=== PATIENT | male | born 1955 | race Caucasian/White ===

== ENCOUNTER 2024-02-19 06:07 | Day surgery (SDC) | payer OTHER, SELFPAY ==
[2024-02-09 13:19] LABS: Hematocrit 41.4 % (39.0-52.0); Hemoglobin 14.6 g/dL (13.0-18.0); Mean Corp Hgb Conc. 35.3 g/dL (33.0-37.0); Mean Corpuscular Hgb 30.4 pg (27.0-31.0); Mean Corpuscular Volume 86.3 fL (80.0-94.0); Mean Platelet Volume 10.3 fL (7.4-10.4); Platelet Count 248 10^3/uL (130-400); Red Cell Dist. Width 14.3 % (11.5-14.5); White Blood Cell Count 8.7 10^3/uL (4.8-10.8)
[2024-02-09 13:47] VITALS: BMI 36.9
[2024-02-09 13:59] LABS: ALT (SGPT) 38 U/L (0-50); AST (SGOT) 35 U/L (17-59); Albumin 4.7 g/dl (3.5-5.0); Alkaline Phosphatase 206 U/L (38-126); Blood Urea Nitrogen 21 mg/dl (9-20); Calcium 10.1 mg/dl (8.4-10.2); Carbon Dioxide 20 mmol/L (22-30); Chloride 98 mmol/L (98-107); Estimated Creatinine Clearance 62 ml/min; Glucose 113 mg/dl (70-99); Potassium 4.8 mmol/L (3.5-5.1); Sodium 137 mmol/L (135-145); Total Bilirubin 0.9 mg/dl (0.2-1.3); Total Protein 7.6 g/dl (6.3-8.2); eGFR 55.09
[2024-02-10 09:14] LABS: Glycohemoglobin (HgbA1c) 5.9 % (4.0-5.6)
[2024-02-13 14:04] VITALS: BMI 36.9
--- NOTE | 2024-02-18 10:28 | VNURNOTE ---
Patient is scheduled for an elective R TKR on 02/19/24. PSR/He will stay overnight. Spoke with patient prior to surgery via telephone.
Patient reports that he lives with his in a one story home.
There are 3 PRICE. He currently functions independently.
DME: He has a rolling walker and cane
PCP is Dr Jin
Discussed orthopedic program and post surgical plans. Reviewed anticipated length of stay and that goal is for him to return home at discharge and go to outpatient PT at [facility]. He will have support from his when he goes home. Call placed
to Ortho, left message confirming plan.
Plan: Outpt PT on 02/22
[2024-02-19] VITALS (12 sets, daily range): BP systolic 113–165; BP diastolic 68–99; PULSE 81; O2SAT 95; BMI 36.9
[2024-02-19] MEDS: BACTROBAN NASAL 1 GRAM NASAL (11:09)
[2024-02-19] MEDS: MOBIC 15 MG PO (11:09)
[2024-02-19] MEDS: TYLENOL 650 MG PO (11:11)
[2024-02-19 11:44] LABS: Glucose - Point of Care 121 mg/dl (70-99)
[2024-02-19] MEDS: VANCOCIN 300 MG IV (11:59)
[2024-02-19] MEDS: VANCOCIN 300 ML IV (11:59)
[2024-02-19] MEDS: NORMOSOL-R/PLASMALYTE-A 1000 IV ×2 (11:59→15:55)
--- NOTE | 2024-02-19 12:22 | PTCARENOTE ---
Patient swabbed with mupirocin. Unable to do MRSA swab at this time. Per instrumentation supervisor Enoch patient can have MRSA swab done tomorrow when patient is up to the nursing floor prior to discharge. Patient is an ABRAHAN.
[2024-02-19 14:47] LABS: Glucose - Point of Care 129 mg/dl (70-99)
[2024-02-19] MEDS: ROXICODONE 5 MG PO ×2 (15:55→18:39)
--- NOTE | 2024-02-19 16:02 | W.PN.UPDATE ---
Update Note
Progress Note Update
Patient seen and examined. Doing well s/p R TKR. VSS. Pulm: nonlabored. CV: regular. RLE: Dressing CDI. NVI distally. Calf soft. Able to fully extend. Postop xrays as expected. ASA for DVT prophylaxis. Outpatient PT after discharge.
Discharge home tomorrow if stable.
[2024-02-19] MEDS: ASPIRIN 325 MG PO (17:04)
[2024-02-19] MEDS: ANCEF 5 IV (20:05)
[2024-02-19] MEDS: SENOKOT 17.2 MG PO (20:05)
[2024-02-19] MEDS: COLACE 100 MG PO (20:05)
[2024-02-19] MEDS: BACTROBAN 2% OINTMENT 1 APPLIC NASAL (20:05)
[2024-02-19] MEDS: DILAUDID 0.5 MG IV (20:06)
[2024-02-19] MEDS: SINEQUAN 150 MG PO (20:49)
[2024-02-19] MEDS: PROCARDIA XL (EXTENDED RELEASE) 30 MG PO (20:49)
[2024-02-19] MEDS: LEXAPRO 10 MG PO (20:50)
[2024-02-19] MEDS: ZESTRIL 10 MG PO (20:50)
[2024-02-19] MEDS: PROTONIX 40 MG PO (20:50)
[2024-02-19] MEDS: LIPITOR 40 MG PO (20:50)
[2024-02-19 22:09] LABS: Glucose - Point of Care 218 mg/dl (70-99)
[2024-02-19] MEDS: FARXIGA 10 MG PO (22:12)
[2024-02-19] MEDS: ROXICODONE 10 MG PO (23:03)
[2024-02-20] MEDS: DILAUDID 0.5 MG IV (01:54)
[2024-02-20 03:10] VITALS: BP 107/76
[2024-02-20] MEDS: ANCEF 5 IV (04:57)
--- NOTE | 2024-02-20 07:17 | W.PN.ORTHO ---
Today's Communication / Plan
-
Plan for discharge later today with outpatient PT on Friday
Assessment
.
Distal Motor Intact: Yes
Dressing:
Clean, dry and intact.
Assessment:
Doing well postop
Plan for discharge later today
Plan
.
Surgery / Date: 02/19/2024 Right TKR [place]
DVT Prophylaxis: Aspirin
Activity:
Out of bed.
PT/OT
Discharge Plan: Home w/ Outpatient PT
Subjective
.
.:
Patient resting comfortably. OOB yesterday and doing well this AM
Vital Signs and Labs
.
Vital Signs and Labs:
Lab Results
02/09/24 12:46
02/09/24 12:46
Temp Pulse Resp BP Pulse Ox
97.3 F 101 18 107/76 92
02/20/24 03:10 02/20/24 03:10 02/20/24 03:10 02/20/24 03:10 02/20/24 03:10
Non-invasive Hgb result: 12.9
Physical Exam
-
Pulmonary nonlabored
CV: regular
RLE: Able to fully extend. Calf soft. NVI distally
[2024-02-20 07:20] VITALS: BP 102/54
[2024-02-20] MEDS: ASPIRIN 325 MG PO (07:47)
[2024-02-20] MEDS: ROXICODONE 10 MG PO (07:47)
[2024-02-20] MEDS: COLACE 100 MG PO (07:47)
[2024-02-20] MEDS: SENOKOT 17.2 MG PO (07:47)
[2024-02-20] MEDS: BACTROBAN 2% OINTMENT 1 APPLIC NASAL (07:52)
[2024-02-20 08:03] LABS: Glucose - Point of Care 182 mg/dl (70-99)
[2024-02-20 08:35] VITALS: BP 107/61; BP 89/56; BP 97/59; PULSE 91
--- NOTE | 2024-02-20 11:31 | PTCARENOTE ---
OT report that patient BP dropped during session and patient became dizzy. OT report BP in semi machado position in bed was 97/59 HR 91. Standing 89/56. Sitting back down 107/61 HR 95. Patient reported that dizziness did resolve when sitting. Patient
also states that he has dizziness at home when standing but it normally goes away quickly. Patient did receive oxy 10 mg this Am at 0747 for pain 12/09. Sunshine Rhodes made aware. Repeat at 1050. Bp sitting was 125/67 HR 95. BP standing was 112/67 HR
102. Sunshine made aware.
[2024-02-20 11:48] VITALS: BP 119/70; BP 125/75; PULSE 91
[2024-02-20] MEDS: ROXICODONE 5 MG PO ×2 (11:51→14:03)
--- NOTE | 2024-02-20 12:39 | CM ---
Met with patient at bedside; initial assessment completed
Pharmacy verified: [facility] @ [address] [place] [address]
Patient and live in a 2 story home including basement; 3 steps to enter; 13 steps down to basement; bathroom has stall shower; raised toilet seat
Patient's 87 year old mother also lives in the home and receives home health services
PLOF: patient reported that prior to admission he ambulated with a cane as needed; independent with ADLs; drives; retired
No recent SNF history; went to a facility many years ago for Rehab
will transport home
Plan: Discharge to home today with orders for outpatient PT
[2024-02-20 14:36] VITALS: BP 124/73
--- NOTE | 2024-02-20 15:36 | W.DS.TRANS ---
DC Summary - [employer]
-
Discharge Instructions:
Sleep Apnea Risk High
Discharge Diagnosis/Procedures s/p right total knee replacement
Diet Diabetic, Carb Controlled
Activity With assistance
Driving Restrictions Not until seen by your Dr
Bathing Restrictions OK to Shower
Wound Care Remove dressing in 7-10 days
Instructions:
Stand-Alone Forms:
Changes to Home Medications: No
Discharge Medications:
DC Medications w/original date entered in [facility]
atorvastatin 40 mg tablet 40 mg PO HS 02/13/24
cariprazine 4.5 mg capsule (Vraylar) 4.5 mg PO HS 02/13/24
dapagliflozin propanediol 10 mg tablet (Farxiga) 10 mg PO HS 02/13/24
doxepin 150 mg capsule 150 mg PO HS 02/13/24
escitalopram oxalate 10 mg tablet (Lexapro) 10 mg PO HS 02/13/24
ibuprofen 200 mg capsule 400 mg PO Q6H PRN pain 02/13/24
lisinopril 10 mg tablet 10 mg PO HS 02/13/24
nifedipine 30 mg tablet,extended release 24 hr 30 mg PO HS 02/13/24
omeprazole 20 mg tablet,delayed release 20 mg PO HS 02/13/24
semaglutide 0.25 mg or 0.5 mg (2 mg/1.5 mL) subcutaneous pen injector (Ozempic) 0.5 mg SC QWEEK 02/13/24
aspirin 325 mg tablet 325 mg PO DAILY #30 tabs 02/19/24
docusate sodium 100 mg capsule 100 mg PO BID Constipation 5 days #10 caps 02/19/24
mupirocin 2 % topical ointment 1 applic intranasal BID 2 days 02/19/24
oxycodone 5 mg tablet 5 mg PO Q4HPRN PRN moderate pain 5 days #30 tabs 02/19/24
Home Medication Changes
Pending Results: No
--- NOTE | 2024-02-20 15:37 | W.DCSUMMARY ---
Discharge Summary
Discharge Data
Date of Admission: 02/19/24
Date of Discharge: 02/20/24
-
Pending Results: No
Hospital Course
68 year old male admitted to the hospital following elective right knee replacement on 02/19/24 under the direction of Dr. Porras. He was monitored overnight. He was able to work with physical therapy. On postoperative day #1, he had some drainage to
the distal aspect of the dressing. A new dressing was applied. Once he was medically stable and his pain was controlled, he was discharged to home. He will be weight bearing as tolerated to the right leg. He will take aspirin 325mg daily for DVT
prophylaxis. He will have an outpatient follow up in two weeks.
Discharge Plan
-
Patient Disposition: Home (Routine Discharge)
Discharge Diagnosis/Procedures: s/p right total knee replacement
Diet: Diabetic, Carb Controlled
Activity: With assistance
Driving Restrictions: Not until seen by your Dr
Bathing Restrictions: OK to Shower
Wound Care: Remove dressing in 7-10 days
Referrals:
Neno Porras MD [Active] - in two weeks
Maryjo Jin MD [Family Provider] -
Prescriptions:
New
aspirin 325 mg Tablet
325 mg PO DAILY Qty: 30 0RF
mupirocin 2 % Ointment
1 applic intranasal BID 2 Days 0RF
docusate sodium 100 mg Capsule
100 mg PO BID 5 Days Qty: 10 0RF
oxycodone 5 mg Tablet
5 mg PO Q4HPRN PRN (Reason: moderate pain) 5 Days Qty: 30 0RF
Continued
nifedipine 30 mg Tablet Extended Release 24hr
30 mg PO HS
atorvastatin 40 mg Tablet
40 mg PO HS
lisinopril 10 mg Tablet
10 mg PO HS
doxepin 150 mg Capsule
150 mg PO HS
escitalopram oxalate [Lexapro] 10 mg Tablet
10 mg PO HS
omeprazole 20 mg Tablet,Delayed Release (Dr/Ec)
20 mg PO HS
dapagliflozin propanediol [Farxiga] 10 mg Tablet
10 mg PO HS
Vraylar 4.5 mg Capsule
4.5 mg PO HS
Ozempic 0.25 mg or 0.5 mg(2 mg/1.5 mL) Pen Injector
0.5 mg SC QWEEK
Held
ibuprofen 200 mg Capsule
400 mg PO Q6H PRN (Reason: pain)
Hold Instructions: Resume on 03/04/24. May resume taking OTC NSAIDs once off Celebrex
Discontinued
mupirocin 2 % Ointment
1 applic TOPICAL BID
Discharge Orders:
Discharge Patient (As Directed); Ordered 02/20/24
Ordered By: Sunshine Rhodes
Discharge Date and Time
Discharge Date/Time: 02/20/24 15:16
Print Language: MALAGASY
--- NOTE | 2024-02-23 11:33 | SLEEP.APNEA ---
Sleep Apnea Order
-
Patient screened as High Risk for Sleep Apnea on [employer] Questionnaire. Patient referred to [facility] for Pre-Study.

Name: MARJORIE MORFIN
: 1955
Home Phone: Use [email or web address] instead
Cell Phone: [f_Reg Other Phone]
Work Phone:
Address: [address] [place] [address]
City: [place]
State: [place]
Zip: [f_[facility] Zip]
Family Physician: Maryjo Jin
Height 5 ft 8 in
Actual Weight 110 kg
Body Mass Index (BMI) 36.9
Ordering Provider: Tati Beard PA-C
== END 2024-02-20 15:16 | disposition home or self-care (01) ==
LOC: SDS 06:07
PROVIDERS: ATTENDING PHYSICIAN Orthopaedic Surgery; FAMILY PHYSICIAN Internal Medicine
DX: M17.11 Unilateral primary osteoarthritis, right knee (principal)
CPT/HCPCS: 27447; C1776; 36415; 73560; 80053; 82962; 83036; 85027; 86850; 86900; 86901; 87070; 97110; 97116; 97162; 97166; 97530; 97535